=== PATIENT | male | born 1965 | race Hispanic/Latino ===

== ENCOUNTER 2016-12-07 21:47 | Emergency (ER) | payer SELFPAY ==
[~2016-12-07] VITALS: Ht 177.8 cm; Wt 80.9 kg
[2016-12-07 23:22] LABS: HEMATOCRIT 31.7 % (38.0-50.0); MCH 28.4 PG (29.0-34.0); MCHC 34.4 G/DL (30.0-36.0); MCV 82.6 FL (86-99); RBC DIS.WIDTH-CV 18.2 % (11.8-14.6); RBC DIS.WIDTH-SD 54.4 % (39-53); RED BLOOD COUNT 3.84 M/uL (4.00-5.50)
[2016-12-07 23:35] LABS: CHLORIDE 107 mEq/L (99-109); POTASSIUM 3.6 mEq/L (3.7-5.4); SODIUM 141 mEq/L (136-147)
[2016-12-07 23:37] LABS: GLUCOSE 132 mg/dL (70-99)
[2016-12-07 23:38] LABS: ANION GAP 15 MEQ/L (2-14)
[2016-12-07 23:40] LABS: SERUM ETHYL ALCOHOL 416 mg/dL
[2016-12-07 23:41] LABS: GFR ESTIMATE (CALCULATED) > 59 mL/min/; UREA NITROGEN (BUN) 5 mg/dL (9-23)
[2016-12-08 00:12] LABS: IMM.PLATELET FRACTION 3.6 (1-7); MEAN PLAT.VOLUME 9.6 uM^3 (9.0-12.4); PLATELET COUNT 41 K/uL (156-360)
[2016-12-08 00:13] LABS: PLAT.SUFFICIENCY VERY DECREASED
[2016-12-08 01:42] LABS: AMPHETAMINE NEGATIVE (500 ng/mL); BARBITURATES NEGATIVE (200 ng/mL); BENZODIAZEPINES NEGATIVE (150 ng/mL); COCAINE NEGATIVE (150 ng/mL); INTERNAL CONTROLS VALID? YES; METHADONE NEGATIVE (200 ng/mL); METHAMPHETAMINE NEGATIVE (500 ng/mL); OPIATES (MORPHINE) NEGATIVE (100 ng/mL); OXYCODONE NEGATIVE (100 ng/mL); PHENCYCLIDINE NEGATIVE (25 ng/mL); PROPOXYPHENE NEGATIVE (300 ng/mL); THC CANNABINOIDS NEGATIVE (50 ng/mL); TRICYCLIC ANTIDEPRESSANTS NEGATIVE (300 ng/mL)
[2016-12-08 12:45] VITALS: BP 172/97
== END 2016-12-08 12:59 | disposition home or self-care (01) ==
LOC: EME 21:47
PROVIDERS: Emergency Medicine
DX: F10.129 Alcohol abuse with intoxication, unspecified (principal); F32.9 Major depressive disorder, single episode, unspecified; F43.10 Post-traumatic stress disorder, unspecified; K70.30 Alcoholic cirrhosis of liver without ascites; Y90.8 Blood alcohol level of 240 mg/100 ml or more
CPT/HCPCS: 80048; 85027; 90839; 99281; 99285; G0480